=== PATIENT | male | born 1960 | race Caucasian/White ===

== ENCOUNTER 2023-01-30 14:09 | Emergency (ER) | payer BC ==
[2023-01-30 14:44] VITALS: BP 107/72; PULSE 105; RESP 18; TEMP 97.6
[2023-01-30 15:07] LABS: ALT 33 U/L (4-49); AST 31 U/L (17-59); African American GFR (CKD) 88 (>60 ml/min/1.73 sqM); Alkaline Phosphatase 141 U/L (38-126); Amylase 64 U/L (30-110); Anion Gap 14 mmol/L; Blood Urea Nitrogen 24 mg/dL (9-20); Calcium 10.3 mg/dL (8.4-10.2); Carbon Dioxide 25 mmol/L (22-30); Chloride 99 mmol/L (98-107); Glucose 184 mg/dL (74-99); Lipase 80 U/L (23-300); Non-African American GFR(CKD) 76 (>60 ml/min/1.73 sqM); Potassium 4.2 mmol/L (3.5-5.1); Sodium 138 mmol/L (137-145); Total Bilirubin 1.2 mg/dL (0.2-1.3); Total Protein 8.1 g/dL (6.3-8.2)
[2023-01-30 15:11] LABS: Basophils % (A) 0 %; Eosinophils # (A) 0.1 k/uL (0-0.7); Eosinophils % (A) 1 %; HCT 53.8 % (39.0-53.0); HGB 18.6 gm/dL (13.0-17.5); Lymphocytes # (A) 0.9 k/uL (1.0-4.8); Lymphocytes % (A) 7 %; MCH 32.3 pg (25.0-35.0); MCHC 34.7 g/dL (31.0-37.0); MCV 93.1 fL (80.0-100.0); Mean Platelet Volume 7.5; Monocytes # (A) 0.5 k/uL (0-1.0); Monocytes % (A) 4 %; Neutrophils # (A) 10.8 k/uL (1.3-7.7); Neutrophils % (A) 87 %; Platelet Count 300 k/uL (150-450); RBC 5.78 m/uL (4.30-5.90); RDW 13.2 % (11.5-15.5); WBC 12.4 k/uL (3.8-10.6)
--- NOTE | 2023-01-30 15:32 | ED ---
Abdominal Pain HPI <John Oropeza - Last Filed: 01/30/23 18:46> - General Source: patient, RN notes reviewed Mode of arrival: ambulatory <JosefinaJerald soodRegina - Last Filed: 01/31/23 10:29> - General Chief Complaint: Abdominal Pain Stated Complaint: Abd Pain Time Seen by Provider: 01/30/23 15:32 - History of Present Illness Initial Comments: This is a 62-year-old male presents emergency department stating that at 6:00 this morning he started having severe abdominal pain across the upper abdomen little more on the right than the left. Patient states that the pain does get much worse at times and then settles down a little but never goes away per patient states about 11:00 he started vomiting. Patient states he remains filemon seated. Patient denies any fever chills. Patient denies any back pain. Patient denies any chest pain difficulty breathing or shortness of breath. Patient denies any diarrhea. Patient denies any dysuria hematuria urinary frequency. (John Oropeza) Patient is a 62-year-old male who presents with abdominal pain and vomiting since this morning. (Regina Rocha) - Related Data Allergies Allergy/AdvReac Type Severity Reaction Status Date / Time No Known Allergies Allergy Verified 01/30/23 14:44 Review of Systems ROS Other: All systems not noted in ROS Statement are negative. <John Oropeza - Last Filed: 01/30/23 18:46> ROS Other: All systems not noted in ROS Statement are negative. <JosefinaRegina - Last Filed: 01/31/23 10:29> ROS Statement: Those systems with pertinent positive or pertinent negative responses have been documented in the HPI. Past Medical History Past Medical History: Asthma, Hyperlipidemia, Hypertension Additional Past Medical History / Comment(s): hx of kidney stones History of Any Multi-Drug Resistant Organisms: None Reported Past Surgical History: Joint Replacement Additional Past Surgical History / Comment(s): R hip 2013. bicep repair. bilat knee 2019. Past Psychological History: No Psychological Hx Reported Smoking Status: Never smoker Past Alcohol Use History: Occasional Past Drug Use History: Marijuana <Regina Rocha - Last Filed: 01/31/23 10:29> General Exam <John Oropeza - Last Filed: 01/30/23 18:46> <Regina Rocha - Last Filed: 01/31/23 10:29> - General Exam Comments Initial Comments: GENERAL: Patient is well-developed and well-nourished. Patient is nontoxic and well-hy drated and is in moderate distress. ENT: Neck is soft and supple. No significant lymphadenopathy is noted. Oropharynx is clear. Moist mucous membranes. Neck has full range of motion without elici ting any pain. EYES: The sclera were anicteric and conjunctiva were pink and moist. Extraocular movements were intact and pupils were equal round and reactive to light. Eyelids were unremarkable. PULMONARY: Unlabored respirations. Good breath sounds bilaterally. No audible rales rhonchi or wheezing was noted. CARDIOVASCULAR: There is a regular rate and rhythm without any murmurs gallops or rubs. ABDOMEN: Patient has tenderness across the upper quadrants of the abdomen more so on the right than the left there is no rebound SKIN: Skin is clear with no lesions or rashes and otherwise unremarkable. NEUROLOGIC: Patient is alert and oriented x3. Cranial nerves II through XII are grossly intact. Motor and sensory are also intact. Normal speech, volume and content. Symmetrical smile. MUSCULOSKELETAL: Normal extremities with adequate strength and full range of motion. No lower extremity swelling or edema. No calf tenderness. LYMPHATICS: No significant lymphadenopathy is noted PSYCHIATRIC: Normal psychiatric evaluation. (John Oropeza) Visual Physical Exam Vital signs reviewed General: Well-appearing, nontoxic, no acute distress. Head: Normocephalic, atraumatic Eyes: PERRLA, EOMI ENT: Airway patent Chest: Nonlabored breathing Skin: No visual rash, normal skin tone Neuro: Alert and oriented 3 Musculoskeletal: No gross abnormalities (Regina Rocha) Course Vital Signs 01/30/23 14:38 Temperature 97.6 F Pulse Rate 105 H Respiratory 18 Rate Blood Pressure 107/72 O2 Sat by Pulse 97 Oximetry Medical Decision Making - Lab Data Result diagrams: 01/30/23 14:50 01/30/23 14:50 <John Oropeza - Last Filed: 01/30/23 18:46> - Lab Data Result diagrams: 01/30/23 14:50 01/30/23 14:50 <Regina Rocha - Last Filed: 01/31/23 10:29> - Medical Decision Making EKG was interpreted by myself shows a sinus tachycardia at 111 bpm AL interval 240 QRS 113 QT interval 360 QTC is 382. Patient's EKG shows no ST segment elevation or depression. Was pt. sent in by a medical professional or institution (, [facility], MANAGER SPECIALTY, urgent care, hospital, or [facility]...) When possible be specific @ -No Did you speak to anyone other than the patient for history (EMS, parent, family, police, friend...)? What history was obtained from this source @ -No Did you review nursing and triage notes (agree or disagree)? Why? @ -I reviewed and agree with nursing and triage notes Were old charts reviewed (outside hosp., previous admission, EMS record, old EKG, old radiological studies, urgent care reports/EKG's, [facility] records)? Report findings @ -No old charts were reviewed Differential Diagnosis (chest pain, altered mental status, abdominal pain women, abdominal pain men, vaginal bleeding, weakness, fever, dyspnea, syncope, headache, dizziness, GI bleed, back pain, seizure, CVA, palpatations, mental health, musculoskeletal)? @ -Differential Abdominal Pain Men: Appendicitis, cholecystitis, diverticulosis, ischemic bowel, pancreatitis, hepatitis, UTI, gastroenteritis, AAA, incarcerated hernia, bowel obstruction, constipation, inflammatory bowel, hepatitis, peptic ulcer disease, splenic infarction, perforated viscus, testicular torsion, this is not meant to be an all-inclusive list EKG interpreted by me (3pts min.). @ -As above X-rays interpreted by me (1pt min.). @ -None done CT interpreted by me (1pt min.). @ -None done U/S interpreted by me (1pt. min.). @ -Ultrasound showed no acute abnormality. What testing was considered but not performed or refused? (CT, X-rays, U/S, labs)? Why? @ -None What meds were considered but not given or refused? Why? @ -None Did you discuss the management of the patient with other professionals (professionals i.e. [facility] Florian, MANAGER SPECIALTY, lab, RT, psych nurse, aids social worker, synthetic department supervisor, teacher, textile technical officer, disease case manager)? Give summary @ -No Was smoking cessation discussed for >3mins.? @ -No Was critical care preformed (if so, how long)? @ -No Were there social determinants of health that impacted care today? How? (Homelessness, low income, unemployed, alcoholism, drug addiction, transportation, low edu. Level, literacy, decrease access to med. care, senior care, rehab)? @ -No Was there de-escalation of care discussed even if they declined (Discuss DNR or withdrawal of care, Hospice)? DNR status @ -No What co-morbidities impacted this encounter? (DM, HTN, Smoking, COPD, CAD, Cancer, CVA, ARF, Chemo, Hep., AIDS, mental health diagnosis, sleep apnea, morbid obesity)? @ -None Was patient admitted / discharged? Hospital course, mention meds given and route, prescriptions, significant lab abnormalities, going to OR and other pertinent info. @ -Received some pain medication and nausea medication and he remained pain free for over 2 hours she got up walked around the ER still had no pain I went back in the room reexamined him no pain no nausea no vomiting at this point time he wanted to go home and I agree that he was able to go home at this time and follow-up with his primary medical care doctor Undiagnosed new problem with uncertain prognosis? @ -No Drug Therapy requiring intensive monitoring for toxicity (Heparin, Nitro, Insulin, Cardizem)? @ -No Were any procedures done? @ -No Diagnosis/symptom? @ -Abdominal pain Acute, or Chronic, or Acute on Chronic? @ -Acute Uncomplicated (without systemic symptoms) or Complicated (systemic symptoms)? @ -Complicated Side effects of treatment? @ -No Exacerbation, Progression, or Severe Exacerbation? @ -No Poses a threat to life or bodily function? How? (Chest pain, [place], [place], pneumonia, PE, COPD, DKA, ARF, appy, cholecystitis, CVA, Diverticulitis, Homicidal, Suic idal, threat to staff... and all critical care pts) @ -No Diagnosis/symptom? @ -Vomiting Acute, or Chronic, or Acute on Chronic? @ -Acute Uncomplicated (without systemic symptoms) or Complicated (systemic symptoms)? @ -default Side effects of treatment? @ -none Exacerbation, Progression, or Severe Exacerbation] @ -no Poses a threat to life or bodily function? @ -no (John Oropeza) - Lab Data Lab Results 01/30/23 01/30/2301/30/23 Range/Units 14:50 14:50 17:47 WBC 12.4 H (3.8-10.6) k/uL RBC 5.78 (4.30-5.90) m/uL Hgb 18.6 H (13.0-17.5) gm/dL Hct 53.8 H (39.0-53.0) % MCV 93.1 (80.0-100.0) fL MCH 32.3 (25.0-35.0) pg MCHC 34.7 (31.0-37.0) g/dL RDW 13.2 (11.5-15.5) % Plt Count 300 (150-450) k/uL MPV 7.5 Neutrophils % 87 % Lymphocytes % 7 % Monocytes % 4 % Eosinophils % 1 % Basophils % 0 % Neutrophils # 10.8 H (1.3-7.7) k/uL Lymphocytes # 0.9 L (1.0-4.8) k/uL Monocytes # 0.5 (0-1.0) k/uL Eosinophils # 0.1 (0-0.7) k/uL Basophils # 0.0 (0-0.2) k/uL Sodium 138 (137-145) mmol/L Potassium 4.2 (3.5-5.1) mmol/L Chloride 99 (98-107) mmol/L Carbon Dioxide 25 (22-30) mmol/L Anion Gap 14 mmol/L BUN 24 H (9-20) mg/dL Creatinine 1.05 (0.66-1.25) mg/dL Est GFR (CKD-EPI)AfAm 88 (>60 ml/min/1.73 sqM) Est GFR (CKD-EPI)NonAf 76 (>60 ml/min/1.73 sqM) Glucose 184 H (74-99) mg/dL Calcium 10.3 H (8.4-10.2) mg/dL Total Bilirubin 1.2 (0.2-1.3) mg/dL AST 31 (17-59) U/L ALT 33 (4-49) U/L Alkaline Phosphatase 141 H (38-126) U/L Total Protein 8.1 (6.3-8.2) g/dL Albumin 5.0 (3.5-5.0) g/dL Amylase 64 (30-110) U/L Lipase 80 (23-300) U/L Urine Color Dark Yellow Urine Appearance Cloudy (Clear) Urine pH 5.5 (5.0-8.0) Ur Specific Belding 1.030 (1.001-1.035) Urine Protein 2+ H (Negative) Urine Glucose (UA) Trace H (Negative) Urine Ketones 2+ H (Negative) Urine Blood Negative (Negative) Urine Nitrite Negative (Negative) Urine Bilirubin Negative (Negative) Urine Urobilinogen 2.0 (<2.0) mg/dL Ur Leukocyte Esterase Moderate H (Negative) Urine RBC 6 H (0-5) /hpf Urine WBC 46 H (0-5) /hpf Hyaline Casts 24 H (0-2) /lpf Urine Mucus Many H (None) /hpf Disposition Is patient prescribed a controlled substance at d/c from ED?: No Time of Disposition: 18:54 <John Oropeza - Last Filed: 01/30/23 18:46> Is patient prescribed a controlled substance at d/c from ED?: No <Regina Rocha - Last Filed: 01/31/23 10:29> Clinical Impression: Abdominal pain, Acute vomiting Disposition: HOME SELF-CARE Condition: Good Instructions (If sedation given, give patient instructions): Abdominal Pain (ED) Referrals: Flor Oates MD [Primary Care Provider] - 1-2 days
[2023-01-30] MEDS ORDERED: KETOROLAC 15 MG/ML 1 ML VIAL IVP STA (16:03)
[2023-01-30] MEDS ORDERED: HYDROmorphone 0.5 MG/0.5 ML SYRINGE IVP STA (16:03)
[2023-01-30] MEDS ORDERED: ONDANSETRON 4 MG/2 ML VIAL IVP STA (16:04)
--- NOTE | 2023-01-30 16:31 | US ---
EXAMINATION TYPE: US abdomen limited DATE OF EXAM: 01/30/2023 COMPARISON: NONE CLINICAL INDICATION: Male, 62 years old with history of RUQ pain; Pain. Nausea. TECHNIQUE: Multiple sonographic images of the right upper quadrant are obtained. FINDINGS: EXAM MEASUREMENTS: Liver Length: 18.4 cm Gallbladder Wall: 0.1 cm CBD: 0.5 cm Right Kidney: 10.6 x 5.4 x 5.6 cm SERVICES MANAGER NOTES:suboptimal due to bowel gas Pancreas: Echogenic in appearance. Head and tail not seen Liver: Increased attenuation, decreased visualization of vessels suggestive of fatty infiltrate. En larged in size. Echogenic. Heterogenous. Gallbladder: wnl Evidence for sonographic Harmon's sign: neg CBD: wnl Right Kidney: No hydronephrosis or masses seen IMPRESSION: 1. No evidence for acute process. The gallbladder appears within normal limits. 2. Hepatic steatosis.
[2023-01-30 18:11] LABS: Appearance,Urine Cloudy (Clear); Bilirubin,Urine Negative (Negative); Blood,Urine Negative (Negative); Color,Urine Dark Yellow; Glucose,Urine (UA) Trace (Negative); Hyaline Casts,Urine 24 /lpf (0-2); Ketones,Urine 2+ (Negative); Leukocyte Esterase,Urine Moderate (Negative); Mucus,Urine Many /hpf; Nitrite,Urine Negative (Negative); PH, Urine 5.5 (5.0-8.0); Protein,Urine 2+ (Negative); RBC,Urine 6 /hpf (0-5); WBC,Urine 46 /hpf (0-5)
[2023-01-30] MEDS ORDERED: ONDANSETRON 4 MG ODT STARTER PACK 2 TAB BTL PO STA (19:11)
== END 2023-01-30 19:18 | disposition home or self-care (01) ==
LOC: EC 14:09
DX: R10.11 Right upper quadrant pain (principal); R10.12 Left upper quadrant pain; R11.2 Nausea with vomiting, unspecified; I10 Essential (primary) hypertension; J45.909 Unspecified asthma, uncomplicated; F12.90 Cannabis use, unspecified, uncomplicated
CPT/HCPCS: 36415; 93005; 80053; 82150; 83690; 85025; 81001; 76705; 99284; 96374; 96375 ×2; J2405; J1885; S0119; J1170